=== PATIENT | female | born 1965 | race Caucasian/White ===

== ENCOUNTER 2018-10-26 10:04 | Outpatient (CLI) | payer OTHER | END 2018-10-26 10:05 | disposition home or self-care (01) | LOC: BICMAMMO 10:04 | PROVIDERS: ATTEND Obstetrics & Gynecology | DX: Z12.31 Encounter for screening mammogram for malignant neoplasm of breast (principal); Z80.3 Family history of malignant neoplasm of breast | CPT/HCPCS: 77063; 77067 ==

== ENCOUNTER 2019-03-15 10:03 | Outpatient (CLI) | payer OTHER ==
--- NOTE | 2019-03-15 13:24 | MRI ---
LUMBAR SPINE MRI WITHOUT IV CONTRAST: HISTORY: Low back pain. FINDINGS: Multiplanar, multisequence MRI examination of the lumbar spine is performed. There are some subtle t ype I end plate changes anteriorly at T12-L1. Generalized disk desiccation changes and ligament and facet hypertrophic changes. Conus medullaris region extends down to approximately the L2 level. T12-L1: Unremarkable. L1-L2: Small central annular fissure without associated stenosis. L2-L3: Mild disk bulging somewhat more focally prominent in the left paracentral aspect with mild le ft lateral recess stenosis and mild left foraminal stenosis. L3-L4: Unremarkable. L4-L5: Very mild lateral recess narrowing. L5-S1: Left posterolateral annular fissure. 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 IMPRESSION: Very subtle type I end plate changes at T12-L1. Multilevel annular fissures. Multilevel most mild l ateral recess stenosis most marked at L2-L3 on the left side. Other findings as above. Discussed with Dr Roverto HUFFMAN CR POS: [facility]
== END 2019-03-15 10:04 | disposition home or self-care (01) ==
LOC: SCSMRI 10:03
PROVIDERS: ATTEND Physical Medicine & Rehabilitation
DX: M54.5 Low back pain (principal); R20.2 Paresthesia of skin; M51.36 Other intervertebral disc degeneration, lumbar region
CPT/HCPCS: 72148

== ENCOUNTER 2020-01-02 09:53 | Outpatient (CLI) | payer OTHER ==
--- NOTE | 2020-01-02 10:23 | MMO ---
Bilateral MAMMO Bilat Screen [facility]. CLINICAL HISTORY: Patient is 54 years old and is seen for screening. The patient has no family history of breast cancer. The patient has no personal history of cancer. VIEWS: The views performed were: bilateral craniocaudal with tomosynthesis and bilateral mediolateral oblique with tomosynthesis. FILMS COMPARED: The present examination has been compared to prior imaging studies performed at [facility] on 11/29/2010, 07/03/2013, 12/08/2015 and 10/26/2018. This study has been interpreted with the assistance of computer-aided detection. MAMMOGRAM FINDINGS: The breasts are extremely dense, which may lower the sensitivity of mammography. There are stable benign appearing calcifications seen in both breasts. There are no suspicious masses, suspicious calcifications, or new areas of architectural distortion. IMPRESSION: THERE IS NO MAMMOGRAPHIC EVIDENCE OF MALIGNANCY. A ROUTINE FOLLOW-UP MAMMOGRAM IN 1 YEAR IS RECOMMENDED. THE RESULTS OF THIS EXAM WERE SENT TO THE PATIENT. ACR BI-RADS Category 2 - Benign finding MAMMOGRAPHY NOTE: 1. A negative mammogram report should not delay a biopsy if a dominant of clinically suspicious mass is present. 2. Approximately 10% to 15% of breast cancers are not detected by mammography. 3. Adenosis and dense breasts may obscure an underlying neoplasm. Reported by: IVANIA DUQUE MD Electonically Signed: [id number]
== END 2020-01-02 09:54 | disposition home or self-care (01) ==
LOC: BICMAMMO 09:53
PROVIDERS: ATTEND Obstetrics & Gynecology
DX: Z12.31 Encounter for screening mammogram for malignant neoplasm of breast (principal)
CPT/HCPCS: 77063; 77067

== ENCOUNTER 2020-11-19 03:20 | Emergency (ER) | payer BC, OTHER ==
[2020-11-19 04:07] LABS: #Eosinphils 0.1 thou/uL (0.0-0.7); #Lymphocytes 3.2 thou/uL (1.20-3.40); #Monocytes 0.7 thou/uL (0.11-0.59); #Neutrophils 5.8 thou/uL (1.40-6.50); %Basophils 0.2 % (0.0-1.0); %Eosinophils 0.8 % (0.0-10.0); %Lymphocytes 32.4 % (21.0-51.0); %Monocytes 7.5 % (0.0-10.0); %Neutrophils 59.1 % (42.0-75.0); Hemoglobin 15.6 g/dL (12.0-16.0); Mean Corpuscular HGB CONC 32.7 g/dL (32.0-36.0); Mean Corpuscular Hemoglobin 31.4 pg (27.0-31.0); Mean Corpuscular Volume 95.9 fL (78.0-98.0); Mean Platelet Volume 7.3 fL (7.4-10.4); Platelet Count 457 thou/uL (130-400); RBC Distribution Width 11.8 % (11.5-14.5); Red Blood Cell (RBC) Count 4.97 mill/uL (4.20-5.40); White Blood Cell (WBC) Count 9.8 thou/uL (4.8-10.8)
[2020-11-19 04:27] LABS: ALT (SGPT) 28 U/L (8-55); AST (SGOT) 21 U/L (5-34); Albumin 4.7 g/dL (3.5-5.0); Alkaline Phosphatase 54 U/L (40-110); Anion Gap 15 mmol/L (10-20); BUN (Urea Nitrogen) 13 mg/dL (9.8-20.1); Bilirubin, Total 0.8 mg/dL (0.2-1.2); Calc. Creatinine Clearance 0 mL/min (70-130); Calcium 9.6 mg/dL (7.8-10.44); Carbon Dioxide 27 mmol/L (22-29); Chloride 100 mmol/L (98-107); Globulin 3.3 g/dL (2.4-3.5); Glucose 114 mg/dL (70-105); Potassium 3.4 mmol/L (3.5-5.1); Sodium 139 mmol/L (136-145)
[2020-11-19 04:46] LABS: Thyroid Stimulating Hormone 2.3313 uIU/mL (0.35-4.94)
[2020-11-19 05:30] LABS: Free T4 (Free Thyroxine) 0.75 ng/dL (0.70-1.48)
== END 2020-11-19 05:19 | disposition home or self-care (01) ==
LOC: ERS 03:20
DX: R00.2 Palpitations (principal); E03.9 Hypothyroidism, unspecified; E78.5 Hyperlipidemia, unspecified; F41.9 Anxiety disorder, unspecified; Z79.899 Other long term (current) drug therapy
CPT/HCPCS: 71045; 80053; 84439; 84443; 85025; 93005

== ENCOUNTER 2023-09-13 11:50 | Outpatient (CLI) | payer BC | END 2023-09-13 11:51 | disposition home or self-care (01) | LOC: SCSRAD 11:50 | PROVIDERS: ATTEND Nurse Practitioner Family | DX: S89.92XA Unspecified injury of left lower leg, initial encounter (principal); R93.6 Abnormal findings on diagnostic imaging of limbs ==

== ENCOUNTER 2023-09-27 11:02 | Outpatient (CLI) | payer BC | END 2023-09-27 11:03 | disposition home or self-care (01) | LOC: BICMRI 11:02 | PROVIDERS: ATTEND Orthopaedic Surgery | DX: S83.512A Sprain of anterior cruciate ligament of left knee, initial encounter (principal); S83.105A Unspecified dislocation of left knee, initial encounter; S83.242A Other tear of medial meniscus, current injury, left knee, initial encounter; M25.462 Effusion, left knee; S80.02XA Contusion of left knee, initial encounter ==